=== PATIENT | female | born 1930 | race Caucasian/White ===

== ENCOUNTER 2016-10-23 02:43 | Inpatient (IN) | payer OTHER ==
[~2016-10-23] VITALS: Ht 157.5 cm; Wt 72.6 kg
[~2016-10-23 02:43] MED LIST: APAP/HYDROCODON1 T13 PO; COL100 PO; COZ50 PO; D3-50001 TAB PO; GUAIFENESI100 MG/52 PO; HEP5I SC; HYDROCODONE BIT PO; IPRATROPIUM BROM3 M2 HHN; LAC PO; LOSARTAN POTASS50 M1 PO; LOVASTATIN40 MG PO; PRI20 PO; PROAIR HFA0.09 MG/A1 INH; PULMICORT0.5 MG/2 M IH; TYL325 PO; ZOFI PO; ZOS3PM IV
[2016-10-23 03:19] LABS: BASOPHIL % 0.5 % (0-2); PLATELET COUNT 209 x10^3mcL (130-400); RED CELL DISTRIBUTION WIDTH 13.8 % (11.5-14.5)
[2016-10-23 03:24] LABS: CHLORIDE SERUM 98 mmol/L (98-107); CREATININE SERUM 0.7 mg/dL (0.6-1.0); GLUCOSE SERUM 120 mg/dL (74-106); POTASSIUM SERUM 3.1 mmol/L (3.5-5.1); SODIUM SERUM 132 mmol/L (136-145)
[2016-10-23 03:30] LABS: ALKALINE PHOSPHATASE 45 U/L (46-116); ALT/SGPT 22 U/L (14-59); AST/SGOT 23 U/L (15-37); BILIRUBIN TOTAL 0.3 mg/dL (0.20-1.00); CHOLESTEROL 141 mg/dL (<200); TOTAL PROTEIN, SERUM 6.3 g/dL (6.4-8.2)
[2016-10-23 03:32] LABS: ALBUMIN 3.2 g/dL (3.4-5.0); HDL CHOLESTEROL 65 mg/dL (40-60)
[2016-10-23 04:45] LABS: UA SPECIFIC GRAVITY 1.025 (1.005-1.035); microscopic required? YES; urine erythrocyte 1+ (NEGATIVE)
[2016-10-23 05:25] VITALS: BP 145/47
[2016-10-23 05:34] VITALS: BP 144/46
[2016-10-23 05:42] LABS: MAGNESIUM 1.7 mg/dL (1.8-2.4)
[2016-10-23 05:52] LABS: T3 TOTAL 0.84 ng/mL
[2016-10-23 06:02] LABS: FREE T4 1.03 ng/dL (0.76-1.46); FREE THYROXINE INDEX 2.8 ug/dL (1.4-4.5); T4(THYROXINE) 7.8 ug/dL (4.7-13.3)
[2016-10-23 06:04] LABS: AMPHETAMINE QUAL UR NONE DETECTED (NEG <=1000)
[2016-10-23 09:53] VITALS: BP 126/53
[2016-10-23 13:30] VITALS: BP 131/46
[2016-10-23 18:17] VITALS: BP 144/53
[2016-10-23 21:24] VITALS: BP 134/49
[2016-10-24 05:21] VITALS: BP 116/62
[2016-10-24 06:34] LABS: CALCIUM 7.9 mg/dL (8.5-10.1); CARBON DIOXIDE 23.6 mmol/L (21-32); CHLORIDE SERUM 101 mmol/L (98-107); CREATININE SERUM 0.9 mg/dL (0.6-1.0); GLUCOSE SERUM 154 mg/dL (74-106); MAGNESIUM 1.8 mg/dL (1.8-2.4); POTASSIUM SERUM 3.6 mmol/L (3.5-5.1); SODIUM SERUM 135 mmol/L (136-145)
[2016-10-24 06:47] LABS: PLATELET COUNT 177 x10^3mcL (130-400); RED CELL DISTRIBUTION WIDTH 14.3 % (11.5-14.5)
[2016-10-24 06:53] LABS: BASOPHIL % 0 % (0-2)
[2016-10-24 08:00] VITALS: BP 123/51
[2016-10-24 13:40] VITALS: BP 135/59
[2016-10-24 18:10] VITALS: BP 150/61
[2016-10-24 22:52] VITALS: BP 159/73
[2016-10-25 05:54] VITALS: BP 156/58
[2016-10-25 06:28] LABS: PLATELET COUNT 172 x10^3mcL (130-400); RED CELL DISTRIBUTION WIDTH 13.9 % (11.5-14.5)
[2016-10-25 06:36] LABS: CALCIUM 7.9 mg/dL (8.5-10.1); CHLORIDE SERUM 102 mmol/L (98-107); CREATININE SERUM 0.7 mg/dL (0.6-1.0); GLUCOSE SERUM 134 mg/dL (74-106); POTASSIUM SERUM 3.2 mmol/L (3.5-5.1); SODIUM SERUM 134 mmol/L (136-145)
[2016-10-25 07:03] LABS: BASOPHIL % 0 % (0-2)
[2016-10-25 08:35] VITALS: BP 147/63
[2016-10-25 12:35] VITALS: BP 161/62
[2016-10-25 17:36] VITALS: BP 134/49
[2016-10-25 21:31] VITALS: BP 192/74
[2016-10-25 22:33] VITALS: BP 135/50
[2016-10-26 06:38] LABS: CALCIUM 7.7 mg/dL (8.5-10.1); CARBON DIOXIDE 23.8 mmol/L (21-32); CHLORIDE SERUM 99 mmol/L (98-107); CREATININE SERUM 0.6 mg/dL (0.6-1.0); GLUCOSE SERUM 101 mg/dL (74-106); MAGNESIUM 1.4 mg/dL (1.8-2.4); PHOSPHOROUS 1.9 mg/dL (2.5-4.9); SODIUM SERUM 132 mmol/L (136-145)
[2016-10-26 06:43] VITALS: BP 153/63
[2016-10-26 08:10] LABS: BASOPHIL % 0 % (0-2); PLATELET COUNT 157 x10^3mcL (130-400); RED CELL DISTRIBUTION WIDTH 14.4 % (11.5-14.5)
[2016-10-26 09:54] VITALS: BP 155/53
[2016-10-26] MEDS ORDERED: LAC PO (09:54)
[2016-10-26] MEDS ORDERED: MEDROL DOSEPAK4 MG PO (09:59)
[2016-10-26] MEDS ORDERED: LEVAQUIN500 M1 PO ×2 (10:01→10:03)
[2016-10-26 13:36] VITALS: BP 155/53
[2016-10-26 13:49] VITALS: BP 160/68
[2016-10-26 17:34] VITALS: BP 157/73
== END 2016-10-26 19:00 | disposition home health service (06) | DRG 190 ==
LOC: ED 02:43 → DU 04:36
PROVIDERS: Emergency Medicine; ADMIT Family Medicine
DX: J44.1 Chronic obstructive pulmonary disease with (acute) exacerbation (principal); N17.0 Acute kidney failure with tubular necrosis; I50.43 Acute on chronic combined systolic (congestive) and diastolic (congestive) heart failure; G93.41 Metabolic encephalopathy; J96.00 Acute respiratory failure, unspecified whether with hypoxia or hypercapnia; E44.0 Moderate protein-calorie malnutrition; E87.1 Hypo-osmolality and hyponatremia; I42.0 Dilated cardiomyopathy; N13.30 Unspecified hydronephrosis; I11.0 Hypertensive heart disease with heart failure; E87.6 Hypokalemia; E83.42 Hypomagnesemia; D72.829 Elevated white blood cell count, unspecified; R73.03 Prediabetes; R31.9 Hematuria, unspecified; E78.5 Hyperlipidemia, unspecified; Z68.29 Body mass index [BMI] 29.0-29.9, adult; T38.0X5A Adverse effect of glucocorticoids and synthetic analogues, initial encounter; Y92.238 Other place in hospital as the place of occurrence of the external cause; Z87.891 Personal history of nicotine dependence
CPT/HCPCS: 36600; 83880; 84439; 97110-GP; 97116-GP; 97530-GP; J1644; J1956; J2405; J2920; J2930; J3475; J3490; J7030; J7613; J7620; J7626; Q0092

== ENCOUNTER 2018-12-06 02:10 | Emergency (ER) | payer OTHER ==
[~2018-12-06] VITALS: Ht 154.9 cm; Wt 74.8 kg
[~2018-12-06 02:10] MED LIST changes: +LEVAQUIN500 M1 PO; +MEDROL DOSEPAK4 MG PO
[2018-12-06 02:42] VITALS: Ht 154.9 cm; Wt 74.8 kg
[2018-12-06 09:06] VITALS: BP 110/68
== END 2018-12-06 09:06 | disposition home or self-care (01) ==
LOC: ED 02:10
DX: S01.81XA Laceration without foreign body of other part of head, initial encounter (principal); I10 Essential (primary) hypertension; J44.9 Chronic obstructive pulmonary disease, unspecified; Z88.5 Allergy status to narcotic agent; W18.39XA Other fall on same level, initial encounter; Y93.89 Activity, other specified; Y92.89 Other specified places as the place of occurrence of the external cause; Y99.8 Other external cause status